=== PATIENT | female | born 1985 | race Caucasian/White ===

== ENCOUNTER → 2021-11-12 | Outpatient (REF) | payer BC | LOC: M LAB REF 16:31 | PROVIDERS: ATTEND Surgery | DX: L72.11 Pilar cyst (principal) ==

== ENCOUNTER → 2022-01-28 | Outpatient (REF) | payer BC | LOC: M LAB REF 16:41 | PROVIDERS: ATTEND Nurse Practitioner Family | DX: Z12.4 Encounter for screening for malignant neoplasm of cervix (principal); R30.0 Dysuria | CPT/HCPCS: 87088; 87624; G0123 ==

== ENCOUNTER → 2024-02-09 | Outpatient (REF) | payer BC ==
[2024-02-09 19:23] LABS: Trichomonas vaginalis (AMP) NOT DETECTED (NEGATIVE)
[2024-02-09 19:47] LABS: GC DNA AMPLIFICATION NEGATIVE (NEGATIVE)
== END ==
LOC: M LAB REF 17:02
PROVIDERS: ATTEND Registered Nurse
DX: Z20.2 Contact with and (suspected) exposure to infections with a predominantly sexual mode of transmission (principal)

== ENCOUNTER → 2024-06-29 | Outpatient (CLI) | payer BC | LOC: M WHC 08:13 | PROVIDERS: ATTEND Registered Nurse | DX: R92.8 Other abnormal and inconclusive findings on diagnostic imaging of breast (principal); R92.333 Mammographic heterogeneous density, bilateral breasts; N60.11 Diffuse cystic mastopathy of right breast; N60.12 Diffuse cystic mastopathy of left breast | CPT/HCPCS: 76641; 77066; G0279 ==